=== PATIENT | female | born 1995 | race African-American/Black ===

== ENCOUNTER 2023-11-21 14:53 | Emergency (ER) | payer SELFPAY ==
[2023-11-21] MEDS ORDERED: KETOROLAC 30 MG/ML INJ ONE (15:31)
[2023-11-21] MEDS ORDERED: DIPHENHYDRAMINE 50 MG/ML VIAL ONE (15:31)
[2023-11-21] MEDS ORDERED: METOCLOPRAMIDE 10 MG/2mL INJ ONE (15:32)
[2023-11-21] MEDS ORDERED: NA CHLORIDE 0.9% 1,000 ML ONE (15:32)
--- NOTE | 2023-11-21 15:36 | RAD REPORT ---
EXAM DESCRIPTION: CT - Head Brain Wo Cont - 11/21/2023 3:17 pm CLINICAL HISTORY: Headache COMPARISON: none TECHNIQUE: Computed axial tomography of the head was obtained. IV contrast was not requested. All CT scans are performed using dose optimization technique as appropriate and may include automated exposure control or mA/KV adjustment according to patient size. FINDINGS: An intracranial bleed is not seen The ventricles are normal in caliber No significant hypodense areas within the brain visualized No extra-axial fluid collection is noted. Fluid within the sinuses/ mastoids is not seen IMPRESSION: No acute intracranial abnormality is seen If patient's symptoms persist MRI of the brain would be recommended
[2023-11-21 15:52] LABS: Absolute Lymphocytes (CBC) 1.1 K/uL (0.7-4.9); Absolute Monocytes 0.6 K/uL (0.1-1.3); Absolute Neutrophil 10.8 K/uL (1.8-8.0); Basophils % 0.1 % (0-1.3); Eosinophils % 0.1 % (0-4.4); Hematocrit 33.1 % (36.0-45.0); Hemoglobin 10.7 g/dL (12.0-15.0); MCH 27.4 pg (27.0-35.0); MCHC 32.2 g/dL (32.0-36.0); MCV 85.1 fL (80-100); MPV 9.6 fL (7.6-11.3); Monocytes % 4.5 % (3.3-12.3); Neutrophils % 86.3 % (41.7-73.7); Platelets 199 thou/uL (152-406); RBC Red Blood Cell Count 3.89 M/uL (3.86-4.86)
[2023-11-21 16:06] LABS: Anion Gap 5.4 mEq/L (5.0-15.0); Potassium 3.4 mEq/L (3.5-5.1)
--- NOTE | 2023-11-21 16:23 | EDPHYS ---
Physician Documentation [facility] Name: Gena Garcia Age: 28 yrs Sex: Female : 1995 Arrival Date: 11/21/2023 Time: 14:53 Bed 9 Private MD: ED Physician Jimi Mesa HPI: 11/20 15:06 This 28 yrs old Female presents to ER via EMS with complaints of headache, nausea. sb4 15:06 The patient complains of pain to the top of head. The patient describes the headache as sb4 constant. Onset: The symptoms/episode began/occurred 1 week(s) ago. Associated signs and symptoms: Pertinent positives: Photophobia vomiting. Headache History: The patient has had previous headaches and this one is similar to previous episodes. The patient has not recently seen a physician. 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 - Infectious Disease History:: Denies. - Social history:: Smoking status: Patient denies any tobacco usage or history of. ROS: 15:06 Constitutional: Negative for fever, chills, and weight loss, sb4 15:06 Abdomen/GI: Positive for nausea and vomiting, 15:06 Neuro: Positive for headache, 15:06 All other systems are negative, Exam: 15:06 Constitutional: This is a well developed, well nourished patient who is awake, alert, sb4 and in no acute distress. Head/Face: Normocephalic, atraumatic. Eyes: Extra-ocular motions intact. Periorbital areas with no swelling, redness, or edema. ENT: Mucous membranes moist. Cardiovascular: Regular rate and rhythm with a normal S1 and S2. Respiratory: Lungs have equal breath sounds bilaterally, clear to auscultation and percussion. No rales, rhonchi or wheezes noted. No increased work of breathing, no retractions or nasal flaring. Abdomen/GI: Soft, non-tender, no distension. Skin: Warm, dry with normal turgor. Normal color with no rashes, no lesions, and no evidence of cellulitis. MS/ Extremity: Pulses equal, no cyanosis. Neurovascular intact. Full, normal range of motion. Neuro: Awake and alert, GCS 15, oriented to person, place, time, and situation. Motor strength 5/5 in all extremities. Sensory grossly intact. Vital Signs: 14:58 BP 126 / 81; Pulse 73; Resp 18; Temp 98.4; Pulse Ox 100% ; Weight 72.57 kg; Height 5 as6 ft. 2 in. ; Pain 8/10; 16:24 BP 124 / 80; Pulse 71; Resp 17; Pulse Ox 99% on R/A; rs5 14:58 Body Mass Index 29.26 (72.57 kg, 157.48 cm) as6 14:58 Pain Scale: Adult as6 Veronique Coma Score: 16:21 Eye Response: spontaneous(4). Motor Response: obeys commands(6). Verbal Response: sb4 oriented(5). Total: 15. MDM: 15:00 Patient medically screened. sb4 16:21 Data reviewed: vital signs, nurses notes, EMS record, lab test result(s), radiologic sb4 studies, and as a result, I will discharge patient. 16:22 Counseling: I had a detailed discussion with the patient and/or guardian regarding the sb4 historical points, exam findings, and any diagnostic results supporting the discharge/admit diagnosis, lab results, radiology results, smoking cessation. 11/20 15:06 Order name: CBC with Diff; Complete Time: 15:56 sb4 11/20 15:06 Order name: BMP; Complete Time: 16:16 sb4 11/20 15:06 Order name: Magnesium; Complete Time: 16:16 sb4 11/20 15:06 Order name: Test, Serum; Complete Time: 16:18 sb4 11/20 15:06 Order name: Head Brain Wo Cont CT; Complete Time: 15:40 sb4 11/20 15:06 Order name: IV Start; Complete Time: 15:31 sb4 Administered Medications: 15:10 Drug: Ketorolac IVP 15 mg IVP once Route: IVP; Site: right antecubital; rs5 15:30 Follow up: Response: No adverse reaction; Pain is decreased rs5 15:10 Drug: metoCLOPramide IVP 10 mg IVP once; over 1 to 2 minutes Route: IVP; Site: right rs5 antecubital; 15:30 Follow up: Response: No adverse reaction rs5 15:10 Drug: diphenhydrAMINE IVP 25 mg IVP once Route: IVP; Site: right antecubital; rs5 15:30 Follow up: Response: No adverse reaction rs5 15:10 Drug: NS 0.9% IV 1000 ml IV at 1 bolus Per protocol; 1000 mL bolus Route: IV; Rate: 1 rs5 bolus; Site: right antecubital; 16:20 Follow up: Response: No adverse reaction; IV Status: Completed infusion; IV Intake: rs5 999ml Disposition Summary: 11/21/23 16:23 Discharge Ordered Notes: Location: Home sb4 Problem: an ongoing problem sb4 Symptoms: are resolved sb4 Condition: Stable sb4 Diagnosis - Migraine without aura, not intractable sb4 Followup: sb4 - With: Emergency Department - When: As needed - Reason: Trouble breathing, Worsening of condition Discharge Instructions: - Discharge Summary Sheet sb4 - Migraine Headache, [id number] sb4 Forms: - Work release form sb4 - Patient Portal Instructions sb4 - Leadership Thank You Letter sb4 Signatures: Dispatcher [employer] Sterling Broussard RN RN as6 [facility] PA-C PAPerla sb4 Nile Mustafa RN RN rs5
--- NOTE | 2023-11-21 16:23 | ER ---
Nurse's Notes [facility] Name: Gena Garcia Age: 28 yrs Sex: Female : 1995 Arrival Date: 11/21/2023 Time: 14:53 Bed 9 Private MD: Diagnosis: Migraine without aura, not intractable Presentation: 11/20 14:59 Chief complaint: EMS states: called out for nausea and headache. Coronavirus screen: At as6 this time, the client does not indicate any symptoms associated with coronavirus-19. Ebola Screen: No symptoms or risks identified at this time. Initial Sepsis Screen: Does the patient meet any 2 criteria? No. Patient's initial sepsis screen is negative. Does the patient have a suspected source of infection? No. Patient's initial sepsis screen is negative. Risk Assessment: Do you want to hurt yourself or someone else? Patient reports no desire to harm self or others. Onset of symptoms was November 21, 2023. 14:59 Acuity: ZARA 3 as6 14:59 Method Of Arrival: EMS: [facility] as6 15:03 Care prior to arrival: Medication(s) given: Normal saline infusion, 500 mL, Tylenol, as6 500 zofran 4 mg, IV initiated. 20 GA, in the right antecubital area. Triage Assessment: 14:59 General: Appears in no apparent distress. Behavior is calm, cooperative. Pain: as6 Complains of pain in head. 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 - Infectious Disease History:: Denies. - Social history:: Smoking status: Patient denies any tobacco usage or history of. Screenin:01 [facility] ED Fall Risk Assessment (Adult) History of falling in the last 3 months, rs5 including since admission No falls in past 3 months (0 pts) Confusion or Disorientation No (0 pts) Intoxicated or Sedated No (0 pts) Impaired Gait No (0 pts) Mobility Assist Device Used No (0 pt) Altered Elimination No (0 pt) Score/Fall Risk Level 0 - 2 = Low Risk Oriented to surroundings, Maintained a safe environment. Abuse screen: Denies threats or abuse. Nutritional screening: No deficits noted. Tuberculosis screening: No symptoms or risk factors identified. Assessment: 15:00 General: Appears in no apparent distress. uncomfortable, Behavior is calm, cooperative. rs5 Pain: Complains of pain in head Pain currently is 8 out of 10 on a pain scale. Quality of pain is described as aching, Is continuous. Neuro: Level of Consciousness is awake, alert, obeys commands, Oriented to person, place, time, situation. Cardiovascular: Patient's skin is warm and dry. Rhythm is regular. Cardiovascular:. Respiratory: Airway is patent Respiratory effort is even, unlabored, Respiratory pattern is regular, symmetrical. GI: Abdomen is round non-distended, Abd is soft and non tender X 4 quads. : No signs and/or symptoms were reported regarding the genitourinary system. EENT: No signs and/or symptoms were reported regarding the EENT system. Derm: Skin is intact, Skin is pink, warm \T\ dry. Musculoskeletal: Range of motion: intact in all extremities. 16:01 Reassessment: Patient and/or family updated on plan of care and expected duration. Pain rs5 level reassessed. Patient is alert, oriented x 3, equal unlabored respirations, skin warm/dry/pink. Patient denies pain at this time. Patient states feeling better. 16:24 Reassessment: No changes from previously documented assessment. rs5 Vital Signs: 14:58 BP 126 / 81; Pulse 73; Resp 18; Temp 98.4; Pulse Ox 100% ; Weight 72.57 kg; Height 5 as6 ft. 2 in. ; Pain 8/10; 16:24 BP 124 / 80; Pulse 71; Resp 17; Pulse Ox 99% on R/A; rs5 14:58 Body Mass Index 29.26 (72.57 kg, 157.48 cm) as6 14:58 Pain Scale: Adult as6 [place] Coma Score: 16:21 Eye Response: spontaneous(4). Motor Response: obeys commands(6). Verbal Response: sb4 oriented(5). Total: 15. ED Course: 14:58 Patient arrived in ED. as6 14:58 Arm band placed on. as6 14:59 [facility] PA-C is PHCP. sb4 14:59 Jimi Mesa MD is Attending Physician. sb4 15:00 Triage completed. as6 15:01 Patient has correct armband on for positive identification. Placed in gown. Bed in low rs5 position. Call light in reach. Side rails up X2. 15:01 No provider procedures requiring assistance completed. rs5 15:03 Maintain EMS IV. Dressing intact. Good blood return noted. Site clean \T\ dry. Gauge \T\ as 6 site: 20g RAC. 15:19 Head Brain Wo Cont CT In Process Unspecified. EDMS 15:28 Sterling Alberto, RN is Primary Nurse. as6 Administered Medications: 15:10 Drug: Ketorolac IVP 15 mg IVP once Route: IVP; Site: right antecubital; rs5 15:30 Follow up: Response: No adverse reaction; Pain is decreased rs5 15:10 Drug: metoCLOPramide IVP 10 mg IVP once; over 1 to 2 minutes Route: IVP; Site: right rs5 antecubital; 15:30 Follow up: Response: No adverse reaction rs5 15:10 Drug: diphenhydrAMINE IVP 25 mg IVP once Route: IVP; Site: right antecubital; rs5 15:30 Follow up: Response: No adverse reaction rs5 15:10 Drug: NS 0.9% IV 1000 ml IV at 1 bolus Per protocol; 1000 mL bolus Route: IV; Rate: 1 rs5 bolus; Site: right antecubital; 16:20 Follow up: Response: No adverse reaction; IV Status: Completed infusion; IV Intake: rs5 999ml Medication: 16:25 VIS not applicable for this client. rs5 Intake: 16:20 IV: 999ml; Total: 999ml. rs5 Outcome: 16:23 Discharge ordered by . sb4 16:34 Patient left the ED. rs5 Signatures: Dispatcher [employer] EDWV Sterling Alberto, RN RN as6 [facility] PA-C PA-C sb4 Nile Mustafa, JAVAN RN rs5
[2023-11-21 17:25] VITALS: BP 124/80; TEMP 98.4; O2SAT 99
== END 2023-11-21 16:34 | disposition home or self-care (01) ==
LOC: ER 14:53
DX: G43.009 Migraine without aura, not intractable, without status migrainosus (principal)
CPT/HCPCS: 36415; 70450; 80048; 83735; 84703; 85025; J1200; J2765; J7030

== ENCOUNTER 2023-11-29 11:53 | Emergency (ER) | payer BC, OTHER ==
[2023-11-29 12:35] LABS: Absolute Lymphocytes (CBC) 0.4 K/uL (0.7-4.9); Absolute Monocytes 0.4 K/uL (0.1-1.3); Absolute Neutrophil 4.9 K/uL (1.8-8.0); Basophils % 0.1 % (0-1.3); Hematocrit 18.1 % (36.0-45.0); Lymphocytes % 6.3 % (15.3-44.8); MCH 27.5 pg (27.0-35.0); MCHC 32.2 g/dL (32.0-36.0); MCV 85.4 fL (80-100); MPV 9.2 fL (7.6-11.3); Monocytes % 6.2 % (3.3-12.3); Neutrophils % 87.4 % (41.7-73.7); Platelets 126 thou/uL (152-406); RBC Red Blood Cell Count 2.12 M/uL (3.86-4.86); Red Cell Distribution Width 13.6 % (12.1-15.2)
[2023-11-29 12:36] LABS: PT Prothrombin Time 22.1 SECONDS (9.4-12.5); Protime INR 2.05
[2023-11-29 12:38] LABS: Hemoglobin 5.8 g/dL (12.0-15.0)
--- NOTE | 2023-11-29 12:47 | RAD REPORT ---
EXAM DESCRIPTION: CT - Head Brain Wo Cont - 11/29/2023 12:37 pm CLINICAL HISTORY: SYNCOPE Headache, drowsiness COMPARISON: Head Brain Wo Cont dated 11/21/2023 TECHNIQUE: All CT scans are performed using dose optimization technique as appropriate and may inclu de automated exposure control or mA/KV adjustment according to patient size. FINDINGS: No intracranial hemorrhage, hydrocephalus or extra-axial fluid collection.No areas of brai n edema or evidence of midline shift. The paranasal sinuses and mastoids are clear. The calvarium is intact. IMPRESSION: No acute intracranial abnormality.
--- NOTE | 2023-11-29 13:17 | RAD REPORT ---
EXAM DESCRIPTION: RAD - Chest Single View - 11/29/2023 1:12 pm CLINICAL HISTORY: syncope Chest pain. COMPARISON: <Comparisons> FINDINGS: Portable technique limits examination quality. The lungs are grossly clear. The heart is normal in size. No displaced fractures. IMPRESSION: No acute intrathoracic process suspected.
[2023-11-29 13:49] LABS: Specific Gravity 1.015 (1.005-1.030)
[2023-11-29 13:59] LABS: Blood Morphology Comment NOT SEEN (NOT SEEN); Platelet Estimate DECR; White Blood Cell Scan OK (OK)
[2023-11-29 14:02] LABS: Specific Gravity 1.015 (1.005-1.030); Urine Bacteria None Seen /HPF (<20); Urine Bilirubin NEGATIVE (Negative); Urine Blood Negative (Negative); Urine Clarity Extremely Turbid (Clear); Urine Color Light-Yellow (Yellow); Urine Culture Reflex Order NOT NEEDED; Urine Glucose NEGATIVE (Negative); Urine Ketones 1+ (Negative); Urine Microscopic Reflex YN ORDER UMIC; Urine Mucus Slight /HPF (None Seen); Urine Nitrite NEGATIVE (Negative); Urine Protein NEGATIVE (Negative); Urine RBC <5 /HPF (None Seen); Urine Urobilinogen Normal (Normal); Urine WBC <5 /HPF (<5)
[2023-11-29 14:08] LABS: Albumin 3.6 g/dL (3.4-5.0); Albumin/Globulin Ratio 0.8 (1.1-1.8); Alkaline Phosphatase 72 U/L (45-117); Anion Gap 5.4 mEq/L (5.0-15.0); BUN Blood Urea Nitrogen 8 mg/dL (7-18); Bicarbonate 26 mEq/L (21-32); Bilirubin Total 0.4 mg/dL (0.2-1.0); Globulin 4.5 g/dL (2.3-3.5); Glomerular Filtration Rate 109 ml/min (=/>90); Glucose Level 88 mg/dL (74-106); Magnesium 2.1 mg/dL (1.6-2.4); Potassium 3.4 mEq/L (3.5-5.1); Protein, Total 8.1 g/dL (6.4-8.2); Sodium Level 134 mEq/L (136-145); Troponin High Sensitivity 3.1 pg/mL (<58.9)
[2023-11-29 14:09] LABS: ALT/SGPT < 14 U/L (13-56); AST/SGOT < 10 U/L (15-37); Bilirubin Direct < 0.2 mg/dL (0-0.2); Bilirubin Indirect, Calculated 0.2 mg/dL (0.2-0.8)
[2023-11-29] MEDS ORDERED: ACETAMINOPHEN 500 MG TAB ONE (15:53)
[2023-11-29] MEDS ORDERED: NA CHLORIDE 0.9% 500 ML ONE (17:09)
--- NOTE | 2023-11-29 17:27 | ER ---
Nurse's Notes [facility] [place], [place] Name: Gena Mims Age: 28 yrs Sex: Female : 1995 Arrival Date: 11/29/2023 Time: 11:53 Bed 13 Private MD: Diagnosis: Anemia, syncope Presentation: 11/28 11:56 Chief complaint: EMS states: Overheated, syncope, found on the floor by coworker. A\T\Ox4 nj1 upon EMS arrival. 11:56 Coronavirus screen: Vaccine status: Patient reports receiving the 2nd dose of the covid nj1 vaccine. Ebola Screen: Patient denies travel to an Ebola-affected area in the 21 days before illness onset. Initial Sepsis Screen: Does the patient meet any 2 criteria? HR > 90 bpm. No. Patient's initial sepsis screen is negative. Does the patient have a suspected source of infection? No. Patient's initial sepsis screen is negative. Risk Assessment: Do you want to hurt yourself or someone else? Patient reports no desire to harm self or others. Onset of symptoms was November 29, 2023. 11:56 Method Of Arrival: EMS: [place] [id number] 11:56 Acuity: ZARA 3 nj1 11:56 Care prior to arrival: Medication(s) given: Normal saline infusion, 250ml IV initiated. nj1 22 GA, in the right hand. Historical: - Allergies: 12:00 No Known Allergies; nj1 - PMHx: 12:00 Hypertensive disorder; nj1 - PSHx: 12:00 section; nj1 - Immunization history:: Client reports receiving the 2nd dose of the Covid vaccine. - Infectious Disease History:: Denies. - Social history:: Smoking status: Patient denies any tobacco usage or history of. Screenin:00 [facility] ED Fall Risk Assessment (Adult) History of falling in the last 3 months, nj1 including since admission Yes- physiologic fall (2 pts) Confusion or Disorientation No (0 pts) Intoxicated or Sedated No (0 pts) Impaired Gait No (0 pts) Mobility Assist Device Used No (0 pt) Altered Elimination No (0 pt) Score/Fall Risk Level 0 - 2 = Low Risk Oriented to surroundings, Maintained a safe environment, Hourly rounding (assess needs \T\ fall precautionary measures) done. Abuse screen: Denies threats or abuse. Denies injuries from another. Nutritional screening: No deficits noted. Tuberculosis screening: No symptoms or risk factors identified. Assessment: 12:00 General: Appears in no apparent distress. comfortable. Pain: Complains of pain in head nj1 Pain currently is 6 out of 10 on a pain scale. Neuro: Level of Consciousness is awake, alert, obeys commands, Oriented to person, place, time, situation. Cardiovascular: Patient's skin is warm and dry. Cardiovascular: Rhythm is regular. Respiratory: Airway is patent Respiratory effort is even, unlabored. 12:00 General: Behavior is calm, cooperative, appropriate for age. nj1 14:00 Reassessment: Patient appears in no apparent distress at this time. Patient and/or nj1 family updated on plan of care and expected duration. Pain level reassessed. Patient is alert, oriented x 3, equal unlabored respirations, skin warm/dry/pink. 17:24 Reassessment: Patient appears in no apparent distress at this time. Patient and/or kj2 family updated on plan of care and expected duration. Pain level reassessed. Patient is alert, oriented x 3, equal unlabored respirations, skin warm/dry/pink. Patient states feeling better. General: Appears in no apparent distress. Behavior is calm, cooperative. Pain: Complains of pain in headache Pain level that patient reports is acceptable is 2 out of 10 on a pain scale. Neuro: Level of Consciousness is obeys commands, patient eyes closed, resting comfortably. Oriented to person, place, situation. Respiratory: No deficits noted. 17:31 General: discharge pending transfusion completion . as6 18:00 Reassessment: 1st unit PRBC's started at this time. nj1 19:45 Reassessment: 1st unit PRBC's finished at this time. nj1 19:50 Reassessment: Call placed to Lab to request second unit of blood. Not available at this nj1 time. They will send request form once available. 19:59 Reassessment: Patient appears in no apparent distress at this time. Patient and/or nj1 family updated on plan of care and expected duration. Pain level reassessed. Patient is alert, oriented x 3, equal unlabored respirations, skin warm/dry/pink. 20:40 Reassessment: 2nd unit PRBC's started at this time. nj1 21:00 Reassessment: Patient appears in no apparent distress at this time. Patient and/or nj1 family updated on plan of care and expected duration. Pain level reassessed. Patient is alert, oriented x 3, equal unlabored respirations, skin warm/dry/pink. Patient denies pain at this time. Patient states feeling better. 22:12 Reassessment: Transfusion care handed to Darby EDOUARD. nj1 22:15 General: Appears in no apparent distress. comfortable, Behavior is calm, cooperative, jw7 appropriate for age. Pain: Denies pain. Neuro: Level of Consciousness is awake, alert, obeys commands, Oriented to person, place, time, situation, Appropriate for age. Cardiovascular: Heart tones S1 S2 present Capillary refill < 3 seconds Clubbing of nail beds is absent JVD is absent Patient's skin is warm and dry. Respiratory: Airway is patent Trachea midline Respiratory effort is even, unlabored, Respiratory pattern is regular, symmetrical. GI: Abdomen is round non-distended, Bowel sounds present X 4 quads. Abd is soft and non tender X 4 quads. : No deficits noted. No signs and/or symptoms were reported regarding the genitourinary system. EENT: No deficits noted. No signs and/or symptoms were reported regarding the EENT system. Derm: Skin is intact, is healthy with good turgor, Skin is dry, Skin is normal, Skin temperature is warm. Musculoskeletal: Circulation, motion, and sensation intact. Range of motion: intact in all extremities. Vital Signs: 11:56 BP 114 / 73; Pulse 95; Resp 16; Temp 97.5(TE); Pulse Ox 99% on R/A; Weight 90.72 kg; nj1 Height 5 ft. 2 in. ; 14:16 BP 121 / 84; Pulse 85; Resp 18; Pulse Ox 98% on R/A; nj1 16:22 BP 119 / 86; Pulse 86; Resp 18; Pulse Ox 100% on R/A; kj2 17:31 BP 122 / 81; Pulse 100; Resp 18; Pulse Ox 100% on R/A; kj2 17:33 Pain 2/10; kj2 22:20 BP 108 / 81; Pulse 84; Resp 17 S; Temp 97.3(TE); Pulse Ox 99% on R/A; jw7 11:56 Body Mass Index 36.58 (90.72 kg, 157.48 cm) nj1 17:33 Pain Scale: Adult kj2 ED Course: 12:00 Maintain EMS IV. Dressing intact. Site clean \T\ dry. Gauge \T\ site: 22 R hand. IV is nj 1 patent, with fluids infusing freely. 12:02 Patient arrived in ED. nj1 12:02 Bridgette Burch MD is Attending Physician. sp3 12:07 Corinne Malcolm, JAVAN is Primary Nurse. nj1 12:33 Triage completed. nj1 12:34 Arm band placed on. nj1 12:38 CT Head Brain wo Cont In Process Unspecified. EDMS 12:40 Patient has correct armband on for positive identification. Bed in low position. Call nj1 light in reach. Adult w/ patient. 12:40 Provided Education on: call light, fall precautions. nj1 13:13 Chest Single View XRAY In Process Unspecified. EDMS 15:02 Accessed peripheral vein via ultrasound, utilizing dynamic ultrasound technique using ss 20G Nexia IV catheter ,sterile technique, per hospital protocol. Clean \T\ dry. Dressing intact. Good blood return. Flushes easily. 17:30 Provided Education on: Blood Transfusion. nj1 22:12 Report given to Darby EDOUARD. nj1 22:40 No provider procedures requiring assistance completed. IV discontinued, intact, jw7 bleeding controlled, No redness/swelling at site. Pressure dressing applied, X2. Administered Medications: 16:00 Drug: Acetaminophen PO 1000 mg PO once Route: PO; kj2 17:33 Follow up: Pain 2/10 Adult kj2 18:25 Drug: Ketorolac IVP 15 mg IVP once Route: IVP; Site: right hand; nj1 20:00 Follow up: Response: No adverse reaction; Pain is decreased nj1 Medication: 22:41 VIS not applicable for this client. jw7 Point of Care Testing: Blood Glucose: 22:00 Blood Glucose: 88 mg/dL; jw7 Ranges: Outcome: 17:27 Discharge ordered by . sp3 22:40 Discharged to home ambulatory, jw7 22:40 Condition: stable 22:40 Discharge instructions given to patient, Instructed on discharge instructions, follow up and referral plans. Demonstrated understanding of instructions, follow-up care, 22:42 Patient left the ED. jw7 Signatures: Dispatcher [employer] EDMS Sosa Zavaleta, RN RN ss Bridgette Burch MD MD sp3 Sterling Alberto, JAVAN RN as6 Darby Vazquez, RN RN jw7 Corinne Malcolm RN RN nj1 Mary Davenport, RN RN kj2
--- NOTE | 2023-11-29 17:27 | EDPHYS ---
Physician Documentation [facility] Name: Gena Mims Age: 28 yrs Sex: Female : 1995 Arrival Date: 11/29/2023 Time: 11:53 Bed 13 Private MD: ED Physician Bridgette Burch HPI: 11/28 13:10 This 28 yrs old Black Female presents to ER via EMS with complaints of Syncope. 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 Patient has a history of anemia with no current treatment. Patient states that she was working in suddenly passed out and woke up due to her "sharp pain soaked". Staff found patient and activated EMS. Patient denies any prodrome to the event except for feeling tired all day. She denies ongoing symptoms other than being fatigued. She denies headache, neck pain, chest pain, shortness of breath, abdominal pain, vomiting, diarrhea, heavy menses, bleeding anywhere else, rash, known sick contacts, travel history, prolonged immobilization, or any other signs or symptoms on ROS at this time.. Historical: - Allergies: 12:00 No Known Allergies; nj1 - PMHx: 12:00 Hypertensive disorder; nj1 - PSHx: 12:00 section; nj1 - Immunization history:: Client reports receiving the 2nd dose of the Covid vaccine. - Infectious Disease History:: Denies. - Social history:: Smoking status: Patient denies any tobacco usage or history of. ROS: 13:11 Constitutional: Negative for fever, chills, and weight loss, Eyes: Negative for injury, sp3 pain, redness, and discharge, ENT: Negative for injury, pain, and discharge, Neck: Negative for injury, pain, and swelling, Cardiovascular: Negative for chest pain, palpitations, and edema, Respiratory: Negative for shortness of breath, cough, wheezing, and pleuritic chest pain, Abdomen/GI: Negative for abdominal pain, nausea, vomiting, diarrhea, and constipation, Back: Negative for injury and pain, MS/Extremity: Negative for injury and deformity, Skin: Negative for injury, rash, and discoloration, Psych: Negative for depression, anxiety, suicide ideation, homicidal ideation, and hallucinations, Allergy/Immunology: Negative for hives, rash, and allergies, Endocrine: Negative for neck swelling, polydipsia, polyuria, polyphagia, and marked weight changes, 13:11 All other systems are negative, Exam: 13:11 Constitutional: This is a well developed, well nourished patient who is awake, alert, sp3 and in no acute distress. Head/Face: Normocephalic, atraumatic. Eyes: Pupils equal round and reactive to light, extra-ocular motions intact. Lids and lashes normal. Conjunctiva and sclera are non-icteric and not injected. Cornea within normal limits. Periorbital areas with no swelling, redness, or edema. ENT: Nares patent. No nasal discharge, no septal abnormalities noted. External auditory canals are clear. Oropharynx with no redness, swelling, or masses, exudates, or evidence of obstruction, uvula midline. Mucous membranes moist. Neck: Trachea midline, no thyromegaly or masses palpated, and no cervical lymphadenopathy. Supple, full range of motion without nuchal rigidity, or vertebral point tenderness. No Meningismus. Chest/axilla: Normal chest wall appearance and motion. Nontender with no deformity. No lesions are appreciated. Cardiovascular: Regular rate and rhythm with a normal S1 and S2. No gallops, murmurs, or rubs. Normal PMI, no JVD. No pulse deficits. Respiratory: Lungs have equal breath sounds bilaterally, clear to auscultation and percussion. No rales, rhonchi or wheezes noted. No increased work of breathing, no retractions or nasal flaring. Abdomen/GI: Soft, non-tender, with normal bowel sounds. No distension or tympany. No guarding or rebound. No evidence of tenderness throughout. Back: No spinal tenderness. No costovertebral tenderness. Full range of motion. Skin: Warm, dry with normal turgor. Normal color with no rashes, no lesions, and no evidence of cellulitis. MS/ Extremity: Pulses equal, no cyanosis. Neurovascular intact. Full, normal range of motion. Neuro: Awake and alert, GCS 15, oriented to person, place, time, and situation. Cranial nerves II-XII grossly intact. Motor strength 5/5 in all extremities. Sensory grossly intact. Cerebellar exam normal. Normal gait. Psych: Awake, alert, with orientation to person, place and time. Behavior, mood, and affect are within normal limits. Vital Signs: 11:56 BP 114 / 73; Pulse 95; Resp 16; Temp 97.5(TE); Pulse Ox 99% on R/A; Weight 90.72 kg; nj1 Height 5 ft. 2 in. ; 14:16 BP 121 / 84; Pulse 85; Resp 18; Pulse Ox 98% on R/A; nj1 16:22 BP 119 / 86; Pulse 86; Resp 18; Pulse Ox 100% on R/A; kj2 17:31 BP 122 / 81; Pulse 100; Resp 18; Pulse Ox 100% on R/A; kj2 17:33 Pain 2/10; kj2 22:20 BP 108 / 81; Pulse 84; Resp 17 S; Temp 97.3(TE); Pulse Ox 99% on R/A; jw7 11:56 Body Mass Index 36.58 (90.72 kg, 157.48 cm) nj1 17:33 Pain Scale: Adult kj2 MDM: 12:04 Patient medically screened. sp3 13:13 Data reviewed: vital signs, nurses notes, lab test result(s), EKG, radiologic studies. sp3 ED course: 38-year-old female with syncope. Differential diagnosis includes heat exhaustion, anemia, electrolyte disturbance, cardiac event, intracranial pathology, among others. Initial CBC demonstrates hemoglobin of 5.8 which is likely the issue. 2 units of PRBCs have been ordered. Remainder of blood work, CT scan of the head and chest x-ray are all pending. UA also pending as well as urine . Disposition pending workup and patient course probable discharge home after PRBCs if remainder of workup is negative.. 17:26 ED course: Will be discharging patient home after PRBC's are done. No signs of acute sp3 blood loss and remainder of workup is negative.. 11/28 12:05 Order name: Basic Metabolic Panel; Complete Time: 14: sp3 11/28 12:05 Order name: CBC with Diff; Complete Time: 14:31 sp3 11/28 12:05 Order name: Hepatic Function; Complete Time: 14:31 sp3 11/28 12:05 Order name: Magnesium; Complete Time: 14: sp3 11/28 12:05 Order name: Test, Urine; Complete Time: 14:31 sp3 11/28 12:05 Order name: Protime (+inr); Complete Time: 12:58 sp3 11/28 12:05 Order name: Troponin High Sensitivity; Complete Time: 14:31 sp3 11/28 12:05 Order name: Urinalysis w/ reflexes; Complete Time: 14:31 sp3 11/28 14:00 Order name: CBC Smear Scan; Complete Time: 14:31 EDMS 11/28 14:59 Order name: Type And Screen 3 11/28 15:49 Order name: Packed RBC Leukored EDIL 11/28 16:13 Order name: ABO/RH no charge EDIL 11/28 12:05 Order name: CT Head Brain wo Cont; Complete Time: 12:58 3 11/28 12:05 Order name: Chest Single View XRAY; Complete Time: 13:18 3 11/28 12:05 Order name: Cardiac monitoring; Complete Time: 12:33 3 11/28 12:05 Order name: EKG - Nurse/Tech; Complete Time: 12:33 3 11/28 12:05 Order name: IV Saline Lock; Complete Time: 12:33 sp3 11/28 12:05 Order name: Labs collected and sent; Complete Time: 12:33 3 11/28 12:05 Order name: NPO; Complete Time: 12:33 3 11/28 12:05 Order name: O2 Per Protocol; Complete Time: 12:33 sp3 11/28 12:05 Order name: O2 Sat Monitoring; Complete Time: 12:33 3 11/28 12:56 Order name: Labs - recollect needed: green top; Complete Time: 14:14 6 11/28 14:59 Order name: Transfuse; Complete Time: 22:26 sp3 Administered Medications: 16:00 Drug: Acetaminophen PO 1000 mg PO once Route: PO; kj2 17:33 Follow up: Pain 2/10 Adult kj2 18:25 Drug: Ketorolac IVP 15 mg IVP once Route: IVP; Site: right hand; nj1 20:00 Follow up: Response: No adverse reaction; Pain is decreased nj1 Point of Care Testing: Blood Glucose: 22:00 Blood Glucose: 88 mg/dL; jw7 Ranges: Critical Glucose Levels:Adult <50 mg/dl or >400 mg/dl <40 mg/dl or >180 mg/dl Disposition Summary: 11/29/23 17:27 Discharge Ordered Notes: Location: Home sp3 Condition: Stable sp3 Diagnosis - Anemia, syncope sp3 Followup: sp3 - With: Private Physician - When: Upon discharge from the Emergency Department - Reason: Continuance of care Discharge Instructions: - Discharge Summary Sheet sp3 - Anemia sp3 Forms: - Medication Reconciliation Form sp3 - Antibiotic Education sp3 - Prescription Opioid Use sp3 - Patient Portal Instructions sp3 - Leadership Thank You Letter sp3 - Work release form nj1 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 EDMS EDMS 12:05 12:05 Chest Single View+RAD.RAD.BRZ ordered. EDMS EDMS 14:16 12:05 Orthostatics ordered. sp3 nj1 15:48 14:59 PACKED RBC LEUKORED+BB.LAB.BRZ ordered. EDMS EDMS 15:48 15:01 ABO/RH typing ordered. EDMS EDMS 15:48 15:01 Antibody Screen ordered. EDMS EDMS
[2023-11-29] MEDS ORDERED: KETOROLAC 30 MG/ML INJ ONE (18:21)
[2023-11-29 23:54] VITALS: BP 108/81; TEMP 97.3; O2SAT 99
== END 2023-11-29 22:42 | disposition home or self-care (01) ==
LOC: ER 11:53
PROC: 30233N1 Transfusion of Nonautologous Red Blood Cells into Peripheral Vein, Percutaneous Approach (ICD-10-PCS; principal; 2023-11-29)
DX: D64.9 Anemia, unspecified (principal); I10 Essential (primary) hypertension
CPT/HCPCS: 85025; 81001; 80048; 36415; 86900; 83735; 86850; 81025; 85610; 86901; 80076; 86920 ×2; 84484; 70450; 71045; 96374; 99285; 36430; P9016 ×2; J7040